=== PATIENT | female | born 1965 | race Caucasian/White ===

== ENCOUNTER 2022-06-13 14:36 | Outpatient (CLI) | payer OTHER, SELFPAY ==
--- NOTE | 2022-06-13 14:40 | CRLHL7_ITS ---
For Patients: As a result of the Cures Act, medical imaging exams and procedure reports are released immediately into your electronic medical record. You may view this report before your referring provider. If you have questions, please contact your health care provider. BILATERAL SCREENING MAMMOGRAM WITH COMPUTER-AIDED DETECTION AND TOMOSYNTHESIS TECHNIQUE: CC and MLO views were obtained. These mammographic images have been obtained using full-field digital technique. These mammographic images were interpreted with the benefit of computer-aided detection. Breast Tomosynthesis was used in this interpretation. COMPARISON FILM: 04/24/21, 04/23/20, 04/01/18. FINDINGS: There are scattered areas of fibroglandular density. IMPRESSION: There is no radiographic evidence for malignancy. ASSESSMENT: BI-RADS Category 2: Benign RECOMMENDATION: Routine screening mammogram in 1 year. A lay language report of this examination will be provided to the patient. Jenna Porter M.D. Diagnostic/Breast Radiologist [email or web address] PT/Dictated by: Jenna Porter MD @ 06/16/2022 8:45:00 AM JERRY/Dictated by: Jenna Porter MD @ 06/16/2022 8:45:00 AM (Electronically Signed)
== END 2022-06-13 14:37 | disposition home or self-care (01) ==
LOC: MAMMO 14:37
PROVIDERS: PCP Family Medicine; Visit Provider Physician Assistant
DX: Z12.31 Encounter for screening mammogram for malignant neoplasm of breast (principal)
CPT/HCPCS: 77063; 77067

== ENCOUNTER 2022-07-02 13:55 | Outpatient (CLI) | payer OTHER, SELFPAY ==
--- NOTE | 2022-07-02 14:00 | CRLHL7_ITS ---
For Patients: As a result of the Cures Act, medical imaging exams and procedure reports are released immediately into your electronic medical record. You may view this report before your referring provider. If you have questions, please contact your health care provider. DXA BONE MINERAL DENSITY STUDY, 07/02/2022 Reason for exam: Osteopenia. Current height (inches): 67.0 Weight (lbs.): 134.0 Menopause age: 50 Ethnicity: White 1. Have you had a previous hip or vertebral fracture? No. 2. Have you had any fractures during your adult life which did not result from significant trauma (e.g., auto accident)? No. 3. Did either of your parents have a hip fracture? No. 4. Do you smoke? No. 5. Have you ever taken Glucocorticoids? No. 6. Do you have rheumatoid arthritis? No. 7. Do you have secondary osteoporosis? No. 8. Do you drink 3 or more alcoholic drinks per day? No. 9. Are you being treated for osteoporosis? No. 10. Have you ever taken any of the following medications: Actonel, Evista, Fosamax, Miacalcin, Reclast, Boniva, Forteo, HRT (i.e., estrogen/hormone therapy), Protelos, Prolia, Vitamin D, Calcium, other ??? please specify. ANSWER: Yes; vitamin D and calcium. 11. Do you have any of the following medical conditions: Anorexia or bulimia, asthma or emphysema, end stage renal disease, hyperparathyroidism, any seizure disorders, cancer, inflammatory bowel diseases, hysterectomy, other ??? please specify. ANSWER: Yes; asthma or emphysema. 12. What was your maximum height (inches)? 67. 13. Do you perform weight bearing exercise regularly? Yes. 14. Do you regularly consume dairy products? Yes. 15. Do you drink caffeinated beverages? No. 16. At what age did your period start? 10. 17. Are you premenopausal? No. 18. How many full-term pregnancies have you had? 3. 19. Have you ever missed your period for more than 6 months in a row (not including or menopause)? No. TECHNIQUE: Bone mineral density study was performed using the [employer]. FINDINGS: The results of the study expressed as bone mineral density (BMD) are as follows: Lumbar Spine L1 to L4: BMD: 0.825 g/cm2. T-score: -2.0. Z-score: -0.7. Neck Left: BMD: 0.757 g/cm2. T-score: -0.8. Z-score: 0.4. Right: BMD: 0.755 g/cm2. T-score: -0.8. Z-score: 0.4. Total Left: BMD: 0.871 g/cm2. T-score: -0.6. Z-score: 0.3. Right: BMD: 0.900 g/cm2. T-score: -0.3. Z-score: 0.5. IMPRESSION: Osteopenia. COMPARISON: Compared with scan of 06/07/2020, the bone mineral density has decreased by 0.4 percent at the spine and increased by 0.5 percent at the hip. Compared with scan of 03/26/2017, the bone mineral density has decreased by 5.5 percent at the spine and decreased by 4.0 percent at the hip. *Comparison exams done prior to 02/2020 were performed on different unit, [employer]. FRAX 10-year Fracture Risk Major Osteoporotic Fracture: 6.0 percent Hip Fracture: 0.3 percent Reported Risk Factors: [place] () Neck BMD = 0.755, BMI = 21.0 JASON HUNT M.D. Diagnostic Radiologist [email or web address] Transcribed: 5:[address]/Dictated by: Jason Hunt MD @ 07/02/2022 3:43:00 PM (Electronically Signed)
== END 2022-07-02 13:56 | disposition home or self-care (01) ==
LOC: RAD 13:56
PROVIDERS: PCP Family Medicine; Visit Provider Physician Assistant
DX: M85.80 Other specified disorders of bone density and structure, unspecified site (principal); M85.89 Other specified disorders of bone density and structure, multiple sites
CPT/HCPCS: 77080

== ENCOUNTER 2023-07-10 07:30 | Outpatient (RCR) | payer OTHER, SELFPAY | END 2023-09-10 14:11 | disposition home or self-care (01) | PROVIDERS: PCP Family Medicine; Visit Provider Otolaryngology Otology & Neurotology | DX: H81.8X9 Other disorders of vestibular function, unspecified ear (principal); R26.89 Other abnormalities of gait and mobility; R26.81 Unsteadiness on feet; M54.2 Cervicalgia; Z51.89 Encounter for other specified aftercare | CPT/HCPCS: 95992; 97110; 97112; 97140; 97161; 97535 ==

== ENCOUNTER 2024-08-17 12:44 | Outpatient (CLI) | payer OTHER, SELFPAY ==
--- OUTSIDE RECORDS SUMMARY | 2024-08-17 12:48 | XMS_ITS | Clinical Summary ---
Author Organization [facility] Address [address] [address] Care Team Providers Care Agricultural Produce Commission Agent Name Role Phone Robyn Chakraborty APRN, CNP Primary Care Prov ider Source Comments You are receiving this document as you are listed as the primary care provider,follow-up provider, or the patient has been referred to you for consultation.This is in compliance with the Medicare and[facility] EHR Incentive Program,which states Providers who transition their patient to another setting of careor provider of care or refers their patient to another provider of care shouldprovide summary care record for each transition of care or referral. [facility] Allergies Active Allergy Reactions Criticality Noted Date Comments Nuts Hives High 03/01/2024 Sulfa Antibiotics 04/20/2004 PN: LW Reaction: HIVES Medications Medication Sig Dispensed Refills Start Date End Date Status loratadine (AKA CLARITIN REDITABS) 10 MG dissolvable tablet Take 1 tablet by mouth daily as needed. LW Addl Instr:Indicated for: Allergies 30 11 11/13/2010 Active Ca Phosphate-Cholecalcif lisette 250-12.5 MG-MCG CHEWIndications:Osteo penia, unspecified location 06/14/2020 Active fluticasone propionate (FLONASE) 50 MCG/ACT nasal solutionIndications:A llergic rhinitis, unspecified seasonality, unspecified trigger Activ e mometasone (ELOCON) 0.1 % ointmentIndications:L ichen sclerosus 03/20/2017 Active Active Problems Problem Noted Date Diagnosed Date Lichen sclerosus 03/01/2024 Gluten intolerance 03/01/2024 Lactose intolerance 03/01/2024 Osteopenia 03/01/2024 Post-menopausal 03/01/2024 Deirdre-menopause 11/02/2015 Hot flashes, menopausal 11/02/2015 Asthma 02/18/2003 Overview (05/06/2017): Asthma NOS Allergic rhinitis 02/18/2003 Overview (05/06/2017): Rhinitis Allergic NOS Resolved Problems Problem Noted Date Diagnosed Date Resolved Date Dysplasia of cervix (uteri) 02/18/2003 08/19/2013 Overview (05/06/2017): JUAN MANUEL Squamous Intraepith Lesion Cervix Tobacco use disorder 02/18/2003 013 Overview (05/06/2017): Tobacco Abuse Immunizations Name Administration Dates Next Due Flu Vac (3+ yrs) 07/06/2014 HepB Adult (Engerix-B, 20+ y rs, 3 dose series) 09/16/2011,06/25/2011,03/25/2011 Influenza IIV4 (Quadrivalent) 0.5mL (70258) 03/2021 Influenza, Unspecified Formulation 07/15/2012 Jose COVID-19 Vaccine 12/21/2020 Moderna Bivalent 12+ 06/22/2022 Moderna Monovalent 12+ 07/20/2021 TB Skin Test (PPD) 04/08/2011,03/25/2011 TDAP (BOOSTRIX) 11/02/2015 Td 01/17/2004 Zoster RZV (Shingrix) 03/01/2024 Family History Medical History Relation Name Comments Cancer Father Heart Disease Father Cancer, Breast Mother Diabetes Mother Hypertension Mother Cancer, Breast Paternal Aunt multiple BRCA 1/2 Negative Family History Cancer, Colon Negative Family History Cancer, Endometrial Negative Family History Cancer, Ovary Negative Family History Dav[place] Syndrome Negative Family History Diethylstilbestrol Exposure Negative Family History Li-Fraumeni Syndrome Negative Family History Relation Name Status Comments Father Mother Brother 1 Brother 2 Alive Maternal Grandfather Maternal Grandmother Paternal Aunt multiple Paternal Grandfather Paternal Grandmother Sister 1 Alive Sister 2 Alive Sister 3 Alive Sister 4 Social History Tobacco Use Types Packs/Day Years Used Date Smoking Tobacco: Former Cigarettes 0.5 24 1 - 2003 Alcohol Use Standard Drinks/Week Comments Yes 0 (1 standard drink = 0.6 oz pure alcohol) Alcoholic Drinks/day: Amount:1-2 drinks; Freq:=> 4/week ; PHQ-2 Answer Date Recorded PHQ-2 Score 0 03/01/2024 Financial Resource Strain Answer Date R ecorded Is it hard for you to pay fo r the very basics like food, housing, medical care or heating? No 02/27/2024 Food Insecurity Answer Date Recorded Does your food run out before you have the money to buy more? No 02/27/2024 Transportation Needs Answer Date Record ed Does a lack of transportatio n keep you from your medical appointments or from getting your medications? No 024 Sex and Gender Information Value Date Recorded Sex Assigned at Not on file Gender Identity Not on file Sexual Orientation Not on file Last Filed Vital Signs Vital Sign Reading Time Taken Comments Blood Pressure 111/77 03/01/2024 3:57 PM CDT Pulse 71 03/01/2024 3:57 PM CDT Temperature 37.3 C (99.1 F) 02/13/2008 10:25 AM CDT C: 37.3 C Respiratory Rate 20 02/13/2008 10:25 AM CDT Oxygen Saturation 96% 03/01/2024 3:57 PM CDT Inhaled Oxygen Concentration - - Weight 64.4 kg (142 lb) 03/01/2024 3:57 PM CDT Height 170.8 cm (5' 7.25) 03/01/2024 3:57 PM CD T Body Mass Index 22.08 03/01/2024 3:57 PM CDT Plan of Treatment Health Maintenance Due Date Last Done Comments Colon Cancer Screening Plan Due 1965 Hep C Screening (Preventive Services) 1965 Pneumococcal (1 - PCV) 1969 HIV Screening (Preventive Services) 1979 Cholesterol 11/01/2019 11/01/2014, 0709/2006, 01/17/2004, Additional history exists Zoster/Shingles (2 of 2) 04/26/2024 03/01/2024 COVID-19 Vaccine ( season) 2024 06/22/2022, 07/20/2021, 12/21/2020 Influenza (#1) 2024 06/20/2021, 06/15, 07/15/2012 Mammogram 02/23/2025 02/24/2024, 05/17, 08/16/2015, Additional history exists Adult Preventive Visit 03/01/2025 03/01/2024 Cervical Cancer Screening 03/01/20252023, 11/12/2015, 11/02/2015, Additional history exists DTaP/Tdap/Td (2 - Tdap) 11/02/2025 11/02/2015, 01/16 RSV (1 - 1-dose 75+ series) 2038 HepB Completed 09/16/2011, 06/14, 03/25/2011 HepA Aged Out No longer eligi ble based on patient's age to complete this topic Hib Aged Out No longer eligi ble based on patient's age to complete this topic IPV (Polio) Aged Out No longer eligi ble based on patient's age to complete this topic RSV Aged Out No longer eligi ble based on patient's age to complete this topic MCV4 Aged Out No longer eligi ble based on patient's age to complete this topic Procedures Procedure Name Priority Date/Time Associated Diagnosis Comments PAP TEST Routine 03/01/2024 5:22 PM CDT Screening for malignant neoplasm of cervix MM MAMMOGRAM SCREENING BILAT W 3D ARY W CAD Routine 02/24/2024 9:17 AM CDT LIPID PANEL & DIRECT LDL (IF NEEDED) Routine 11/01/2014 9:56 AM AUTOMATIC MACHINES SUPERVISOR Screening for lipoid disorders from Last 3 Months or Most Recently Relevant to Health Maintenance Results * PAP Test (03/01/2024 5:22 PM CDT) Case Report Pap Case: [id number] Authorizing Provider: Lisa Kurtz MD Collected: 03/01/20241721 Ordering Location: [facility] Received: 03/01/2024 1725 Medicine First Screen: Oriana Lawler CT (ASCP) Rescreen: Song Rodriguez CT (ASCP) Specimen: Pap Test, Routine, Cervix/Endocervi x 04/12/2024 2:30 PM [facility] Pap Specimen Adequacy Unsatisfactory for evaluation. 04/12/2024 2:30 PM [facility] Pap Interpretation Inadequate squamous cellularity. 04/12/2024 2:30 PM [facility] Pap Disclaimer The Pap test is a screening test to aid in the detection of cervical and vaginal cancers and their precursor lesions. It is not a diagnostic procedure and should not be used as the sole means of detecting malignancy. Both false-positive and false-negative results may occur. 04/12/2024 2:30 PM [facility] Gross Description The specimen is received in SurePath fixative and properly labeled. 1 Pap-stained SurePath slide is prepared. 04/12/2024 2:30 PM [facility] Embedded Images 2:30 PM [facility] Other Specimen Type ENTIRE ENDOCERVIX / Unknown 03/01/2024 5:22 PM CDT 03/01/2024 5:25 PM CDT Comment:LMP: No LMP recorded . (Menstrual status: Perimenopausal). Lisa Kurtz MD LAB PATHOLOGY Performing Organization Address City/State/[facility] Co de Phone Number [address] [address], [facility] * MM Mammogram Screening Bilat W 3D Ary W CAD (02/24/2024 9:17 AM CDT) Anatomical Region Laterality Modality Breast Bilateral Mammography Impressions 02/25/2024 10:29 AM CDT : ACR BI-RADS Category 1: Negative RECOMMENDATION: Follow Up Imaging in 12 months - Bilateral The results and recommendations of this examination will be communicated to the patient. Narrative 02/25/2024 10:29 AM CDT MM MAMMOGRAM SCREENING BILAT W 3D ARY W CAD performed on 02/24/24 Compared to: 06/13/2022 Foreign Image(S) Mammogram Bilateral Screening, 04/24/2021 Foreign Image(S) Mammogram Bilateral Screening, and 04/23/2020 Foreign Image(S) Mammogram Bilateral Screening ? FINDINGS: Bilateral screening mammogram was performed with the assistance of Computer-Aided Detection and breast tomosynthesis. The breasts are heterogeneously dense, which may obscure small masses. There is no radiographic evidence of malignancy. Lisa Kurtz MD RAD [facility] * Lipid Panel and Direct LDL(If Needed) (11/01/2014 9:56 AM AUTOMATIC MACHINES SUPERVISOR) Cholesterol 161 0 - 200 mg/dL HP CONVERSION Triglycerides 89 0 - 149 mg/dL HP CONVERSION HDL Cholesterol 74 >39 mg/dL HP CONVERSION Cholesterol/HDL Ratio Screen 2.2 HP CONVERSION LDL Calculated 69 19 - 130 mg/dL HP CONVERSION Hours Fasting 12.0 HP CONVERSION 11/01/2014 9:56 AM AUTOMATIC MACHINES SUPERVISOR 11/01/2014 9:56 AM AUTOMATIC MACHINES SUPERVISOR Narrative HP CONVERSION - 11/01/2014 10:30 AM AUTOMATIC MACHINES SUPERVISOR Performed at [facility], [address] [place] [address] Robyn Chakraborty APRN, CELL EFFICIENCY SUPERVISOR LAB_1 Performing Organization Address City/State/[facility] Co de Phone Number HP CONVERSION from Last 3 Months or Most Recently Relevant to Health Maintenance Care Teams Agricultural Produce Commission Agent Relationship Specialty Start Date End Date Robyn Chakraborty APRN, CELL EFFICIENCY SUPERVISOR [id number] [place] [phone] PCP - General 12/15/10
--- NOTE | 2024-08-17 13:00 | CRLHL7_ITS ---
For Patients: As a result of the Century Cures Act, medical imaging exams and procedure reports are released immediately into your electronic medical record. You may view this report before your referring provider. If you have questions, please contact your health care provider. DXA BONE MINERAL DENSITY STUDY Reason for exam: Osteopenia. Current height (in): 67. Weight (lb): 143. Menopause age: 50. Ethnicity: White. 1. Have you had a previous hip or vertebral fracture? No. 2. Have you had any fractures during your adult life which did not result from significant trauma (e.g., auto accident)? No. 3. Did either of your parents have a hip fracture? No. 4. Do you smoke? No. 5. Have you ever taken Glucocorticoids? No. 6. Do you have rheumatoid arthritis? No. 7. Do you have secondary osteoporosis? No. 8. Do you drink 3 or more alcoholic drinks per day? No. 9. Are you being treated for osteoporosis? No. 10. Have you ever taken any of the following medications: Actonel, Evista, Fosamax, Miacalcin, Reclast, Boniva, Forteo, HRT (i.e. estrogen/hormone therapy), Protelos, Prolia, Vitamin D, Calcium, other ??? please specify. ANSWER: Yes, Vitamin D and calcium. 11. Do you have any of the following medical conditions: Anorexia or bulimia, asthma or emphysema, end stage renal disease, hyperparathyroidism, any seizure disorders, cancer, inflammatory bowel diseases, hysterectomy, other ??? please specify. ANSWER: No. 12. What was your maximum height (inches)? 67. 13. Do you perform weight bearing exercise regularly? Yes. 14. Do you regularly consume dairy products? Yes. 15. Do you drink caffeinated beverages? Yes. 16. At what age did your period start? 10. 17. Are you premenopausal? No. 18. How many full term pregnancies have you had? 3. 19. Have you ever missed your period for more than 6 months in a row (not including or menopause)? No. TECHNIQUE: Bone mineral density study was performed using the [employer]. FINDINGS: The results of the study expressed as bone mineral density (BMD) are as follows: Lumbar spine L1 to L4: BMD: 0.801 g/cm2. T-score: -2.2. Z-score: -0.8. Neck Left: BMD: 0.772 g/cm2. T-score: -0.7. Z-score: 0.6. Right: BMD: 0.739 g/cm2. T-score: -1.0. Z-score: 0.3. Total Left: BMD: 0.871 g/cm2. T-score: -0.6. Z-score: 0.4. Right: BMD: 0.892 g/cm2. T-score: -0.4. Z-score: 0.6. IMPRESSION: Osteopenia. *Comparison exams done prior to 02/2020 were performed on different unit, [employer]. COMPARISON: Compared with scan of 07/02/2022, the bone mineral density has decreased by 2.9 percent at the spine and decreased by 0.5 percent at the hip. Compared with scan of 06/07/2020, the bone mineral density has decreased by 0.4 percent at the spine and increased by 0.5 percent at the hip. FRAX 10-year Fracture Risk Major Osteoporotic Fracture: 6.8 percent Hip Fracture: 0.4 percent Reported Risk Factors: [place] () Neck BMD=0.739, BMI=22.4 Aviva Sullivan M.D. Body/Interventional Radiologist [email or web address] SP/Dictated by: Aviva Sullivan MD @ 08/18/2024 4:09:00 PM (Electronically Signed)
== END 2024-08-17 12:45 | disposition home or self-care (01) ==
LOC: RAD 12:46
PROVIDERS: Visit Provider Physician Assistant
DX: M85.80 Other specified disorders of bone density and structure, unspecified site (principal); M85.89 Other specified disorders of bone density and structure, multiple sites
CPT/HCPCS: 77080

== ENCOUNTER 2025-04-03 11:15 | Outpatient (CLI) | payer OTHER, SELFPAY ==
[2025-04-05 01:57] LABS: HPV Source Cervix
[2025-04-10 12:20] LABS: Pap Test Digital Imaging Done
== END 2025-04-03 11:16 | disposition home or self-care (01) ==
PROVIDERS: Visit Provider Physician Assistant
DX: Z12.4 Encounter for screening for malignant neoplasm of cervix (principal); Z11.51 Encounter for screening for human papillomavirus (HPV)
CPT/HCPCS: 87624; 87625; 88141; 88142; 88175